=== PATIENT | male | born 1945 | race Caucasian/White ===

== ENCOUNTER 2021-10-29 09:05 | Outpatient (CLI) | payer MEDICARE, SELFPAY ==
[2021-10-29 14:04] LABS: Chloride* 104 mmol/L (96-114)
[2021-10-29 14:05] LABS: Albumin* 4.3 g/dL (3.3-5.0); Sodium* 141 mmol/L (135-149)
[2021-10-29 14:06] LABS: Potassium* 4.1 mmol/L (3.6-5.1)
[2021-10-29 14:08] LABS: Alanine Aminotransferase* 32 U/L (4-50); Alkaline Phosphatase* 62 U/L (40-150); Aspartate Amino Transferase* 33 U/L (12-35); Bilirubin Total* 1.1 mg/dL (0.1-1.5); Blood Urea Nitrogen* 23 mg/dL (7-30); Carbon Dioxide* 33 mmol/L (20-32); Estimated Glomerular Filt Rate 77.52
[2021-10-29 14:09] LABS: Calcium* 9.4 mg/dL (8.4-10.6); Glucose* 103 mg/dL (60-115)
[2021-10-29 14:47] LABS: PSA Screen* < 0.06 ng/mL (0.10-4.00)
[2021-10-29 14:57] LABS: Cholesterol* 144 mg/dL (90-199); HDL Cholesterol* 44 mg/dL (>=40); LDL Cholesterol Calculated 80 mg/dL (<100); Triglycerides* 99 mg/dL (40-149)
== END 2021-10-29 09:06 | disposition home or self-care (01) ==
PROVIDERS: PCP Family Medicine; Visit Provider Family Medicine
DX: Z00.00 Encounter for general adult medical examination without abnormal findings (principal); E78.5 Hyperlipidemia, unspecified; I10 Essential (primary) hypertension; G45.3 Amaurosis fugax; M81.0 Age-related osteoporosis without current pathological fracture; Z12.5 Encounter for screening for malignant neoplasm of prostate
CPT/HCPCS: 80053; 80061; 84153

== ENCOUNTER 2021-11-11 13:26 | Outpatient (CLI) | payer MEDICARE, SELFPAY ==
--- NOTE | 2021-11-11 13:30 | CRLHL7_ITS ---
For Patients: As a result of the Cures Act, medical imaging exams and procedure reports are released immediately into your electronic medical record. You may view this report before your referring provider. If you have questions, please contact your health care provider. DXA BONE MINERAL DENSITY STUDY, 11/11/2021 Current height (inches): 70.0 Weight (lb.): 200.0 Menopause age: N/A Ethnicity: White 1. Have you had a previous hip or vertebral fracture? No. 2. Have you had any fractures during your adult life which did not result from significant trauma (e.g., auto accident)? No. 3. Did either of your parents have a hip fracture? No. 4. Do you smoke? No. 5. Have you ever taken Glucocorticoids? No. 6. Do you have rheumatoid arthritis? No. 7. Do you have secondary osteoporosis? No. 8. Do you drink 3 or more alcoholic drinks per day? No. 9. Are you being treated for osteoporosis? Yes. 10. Have you ever taken any of the following medications: Actonel, Evista, Fosamax, Miacalcin, Reclast, Boniva, Forteo, HRT (i.e., estrogen/hormone therapy), Protelos, Prolia, Vitamin D, Calcium, other ??? please specify. ANSWER: Yes; Fosamax, vitamin D, calcium. 11. Do you have any of the following medical conditions: Anorexia or bulimia, asthma or emphysema, end stage renal disease, hyperparathyroidism, any seizure disorders, cancer, inflammatory bowel diseases, hysterectomy, other ??? please specify. ANSWER: Yes; Seizure disorder, cancer. 12. What was your maximum height (inches)? 70. 13. Do you perform weight bearing exercise regularly? No. 14. Do you regularly consume dairy products? Yes. 15. Do you drink caffeinated beverages? Yes. TECHNIQUE: Bone mineral density study was performed using the [email or web address]. FINDINGS: The results of the study expressed as bone mineral density (BMD) are as follows: Lumbar Spine L2 to L4: BMD: 1.056 g/cm2. T-score: -0.5. Z-score: 0.6. Neck Left: BMD: 0.642 g/cm2. T-score: -2.1. Z-score: -0.7. Right: BMD: 0.610 g/cm2. T-score: -2.4. Z-score: -0.9. Total Left: BMD: 0.812 g/cm2. T-score: -1.5. Z-score: -0.5. Right: BMD: 0.807 g/cm2. T-score: -1.5. Z-score: -0.6. IMPRESSION: Osteopenia. COMPARISON: Compared with scan of 11/21/2019, the bone mineral density has decreased by 1.0 percent at the spine and increased by 3.1 percent at the hip. Compared with scan of 11/09/2017, the bone mineral density has increased by 11.2 percent at the spine and increased by 11.6 percent at the hip. *Comparison exams done prior to 09/2019 were performed on different unit, [employer]. JOSE RAMON BENSON M.D. Diagnostic Radiologist [email or web address] Transcribed: 5:[address]/Dictated by: Jose Ramon Benson MD @ 11/11/2021 3:14:00 PM (Electronically Signed)
== END 2021-11-11 13:27 | disposition home or self-care (01) ==
PROVIDERS: PCP Family Medicine; Visit Provider Family Medicine
DX: M81.0 Age-related osteoporosis without current pathological fracture (principal); M85.89 Other specified disorders of bone density and structure, multiple sites
CPT/HCPCS: 77080

== ENCOUNTER 2022-12-05 08:06 | Outpatient (CLI) | payer MEDICARE, SELFPAY | END 2022-12-05 08:07 | disposition home or self-care (01) | LOC: NFLDREF 14:48 | PROVIDERS: PCP Family Medicine; Referring Provider Family Medicine; Visit Provider Family Medicine | DX: Z00.00 Encounter for general adult medical examination without abnormal findings (principal); I10 Essential (primary) hypertension; E78.5 Hyperlipidemia, unspecified; C61 Malignant neoplasm of prostate | CPT/HCPCS: 80048; 80061; 84153 ==

== ENCOUNTER 2023-12-06 08:06 | Outpatient (CLI) | payer MEDICARE, SELFPAY ==
--- OUTSIDE RECORDS SUMMARY | 2023-12-07 09:36 | XMS_ITS | Referral Summary ---
Author Organization [facility] Address [address] [place] [address] Care Team Providers Care Head Bookkeeper Name Role Phone AsaelJaskaran adamson Rocio Primary Care Provider + [phone] Michael Onofre MD Unavailable [phone] Allergies Active Allergy Reactions Criticality Noted Date Comments Simvastatin Muscle Pain (Myalgia) 12/28/2018 Medications Medication Sig Dispensed Refills Start Date End Date Status clopidogrel (PLAVIX) 75 MG tablet Take 75 mg by mouth every evening Active rosuvastatin (CRESTOR) 10 MG tablet Take 10 mg by mouth daily Active hydrochlorothiazide (HYDRODIURIL) 12.5 MG tablet Take 12.5 mg by mouth daily Active alendronate (FOSAMAX) 70 MG tablet Take 70 mg by mouth every 7 days On Sundays Active loratadine (CLARITIN) 10 MG tablet Take 10 mg by mouth daily Active metoprolol succinate ER (TOPROL-XL) 50 MG 24 hr tablet Take 50 mg by mouth daily Active CALCIUM-VITAMIN D PO Take 1 tablet by mouth 2 times daily Active sodium chloride (OCEAN) 0.65 % nasal spray [place] 1 spray into both nostrils daily as needed for congestion Active pantoprazole (PROTONIX) 20 MG EC tabletIndications:A symptomatic stenosis of right carotid artery Take 1 tablet (20 mg) by mouth every morning (before breakfast) 90 tablet 3 12/29/2018 Active Active Problems Problem Noted Date Diagnosed Date Asymptomatic stenosis of right carotid artery Immunizations Name Administration Dates Next Due Influenza (intradermal) 02/19/2018 Pneumococcal, Unspecified 10/31/2016,10/23/2014 TD,PF 7+ (Tenivac) 09/18/1993 Tdap (Adult) Unspecified Formulation 08/18/2010 Zoster vaccine, live 06/15/2009 Social History Tobacco Use Types Packs/Day Years Used Date Smoking Tobacco: Former Cigarettes Q uit: 12/20/2009 Smokeless Tobacco: Never Alcohol Use Standard Drinks/Week Comments Yes 0 (1 standard drink = 0.6 oz pur e alcohol) 1 beer every 2 months Adolescent Education Answer Date Record ed Getting School Help Needed Not on file 01/22 Sex and Gender Information Value Date Recorded Sex Assigned at Not on file Gender Identity Not on file Sexual Orientation Not on file Last Filed Vital Signs Vital Sign Reading Time Taken Comments Blood Pressure 150/78 04/11/2019 11:03 AM POST FORM REMOVER Pulse 68 04/11/2019 11:03 AM POST FORM REMOVER Temperature 36.8 ??C (98.2 ??F) 01/10/2019 10:55 AM C DT Respiratory Rate 16 01/10/2019 10:55 AM CDT Oxygen Saturation 96% 12/29/2018 8:13 AM CDT Inhaled Oxygen Concentration - - Weight 90.7 kg (200 lb) 01/10/2019 10:55 AM CDT Height 177.8 cm (5' 10) 01/10/2019 10:55 AM CDT Body Mass Index 28.7 01/10/2019 10:55 AM CDT Plan of Treatment Upcoming Encounters Date Type Department Care Team (Late st Contact Info) Description 12/11/2023 8:00 AM CDT Appointment [facility] [address] [place] [phone] Michael Onofre MD [address] [place] [address] 12/12/2023 10:45 AM CDT Office Visit [facility] [place] [address] [place] [phone] Michael Onofre MD [address] [place] [address] Procedures Procedure Name Priority Date/Time Associated Diagnosis Comments GLUCOSE BY METER Routine 12/29/2018 5:50 AM CDT LIPID PROFILE STAT 12/28/2018 11:38 AM CDT from Last 3 Months or Most Recently Relevant to Health Maintenance Results * (ABNORMAL) Glucose by meter (12/29/2018 5:50 AM CDT) Glucose 101(H) 70 - 99 mg/dL 12/29/2018 6:02 AM CDT POINT OF CARE TEST, GLUCOSE 12/29/2018 5:50 AM CDT 12/29/2018 6:02 AM CDT Michael Onofre MD LAB - BEAKER PO CT POINT OF CARE TEST, GLUCOSE * Lipid panel (12/28/2018 11:38 AM CDT) Cholesterol 122 <200 mg/dL 12/28/2018 12:[address] [facility] Triglycerides 68 <150 mg/dL 12/28/2018 12:[address] [facility] HDL Cholesterol 46 >39 mg/dL 9 12:[address] [facility] LDL Cholesterol Calculated 62 <100 mg/dL 12/28/2018 12:[address] [facility] Comment:Desirable: <100 mg/d l Non HDL Cholesterol 76 <130 mg/dL 12/28/2018 12:[address] [facility] Blood specimen (specimen) 12/28/2018 11:38 AM CDT 12/28/2018 11:39 AM CDT Michael Onofre MD LAB - BLOOD ORD ERABLES [facility] [address] [place] [address], [facility] [phone] from Last 3 Months or Most Recently Relevant to Health Maintenance Care Teams Head Bookkeeper Relationship Specialty Start Date End Date Jaskaran Vyas [address] [address] PCP - General Family Practice 11/21/18 Michael Onofre MD [address] [place] [address] Assigned Heart and Vascular Provider 12/24/22
--- OUTSIDE RECORDS SUMMARY | 2023-12-07 09:36 | XMS_ITS | Clinical Summary ---
Author Organization [facility] Address [address] [place] [address] Care Team Providers Care Flour Worker Name Role Phone Jaskaran Vyas Rocio Primary Care Provider + [phone] Michael Onofre MD Unavailable [phone] Allergies Active Allergy Reactions Criticality Noted Date [...] sodium chloride (OCEAN) 0.65 % nasal spray [place] 1 spray into both nostrils daily as [...] Comments Blood Pressure 150/78 04/11/2019 11:03 AM PATIENT ACCOUNTS COORDINATOR Pulse 68 04/11/2019 11:03 AM PATIENT ACCOUNTS COORDINATOR Temperature 36.8 ??C (98.2 ??F) 01/10/2019 10:55 [...] Info) Description 12/11/2023 8:00 AM CDT Appointment [facility] [address] [place] [phone] Michael Onofre MD [address] [place] [address] 12/12/2023 10:45 AM CDT Office Visit [facility] [place] [address] [place] [phone] Michael Onofre MD [address] [place] [address] Health Maintenance Due Date Last Done Comments ADVANCE CARE PLANNING 1944 ANNUAL REVIEW OF HM ORDERS 1944 HEPATITIS C SCREENING 1962 LUNG CANCER SCREENING 1994 RSV VACCINE ( & 60+) (1 - 1-dose 60+ series) 2004 MEDICARE ANNUAL WELLNESS VISIT 2009 LIPID 12/29/2019 12/28/2018 FALL RISK ASSESSMENT 04/11/2020 04/11/2019, 01/11/20 19 GLUCOSE 12/29/2021 12/29/2018, 12/28/2018 PHQ-2 (once per calendar year) 2023 COVID-19 Vaccine (5 - 2022- season) 2023 02/23/2023, 02/23/2022, 09/01/2021, Additional history exists INFLUENZA VACCINE (#1) 2023 , 02/23/2022, 03/01/2021, Additional history exists DTAP/TDAP/TD IMMUNIZATION (3 - Td or Tdap) 11/24/2030 11/24/2020, 08/18/2010, 08/18/2010, Additional history exists Pneumococcal Vaccine: 65+ Years Completed 10/31/2016, 10/31/2016, 10/23/2014, Additional history exists ZOSTER IMMUNIZATION Completed 04/15/2019, 02/12/2019, 06/15/2009 HPV IMMUNIZATION Aged Out No longer e ligible based on patient's age to complete this topic IPV IMMUNIZATION Aged Out No longer e ligible based on patient's age to complete this topic MENINGITIS IMMUNIZATION Aged Out No l onger eligible based on patient's age to complete this topic RSV MONOCLONAL ANTIBODY Aged Out No l onger eligible based on patient's age to complete this topic Procedures Procedure Name Priority Date/Time Associated Diagnosis [...] <200 mg/dL 12/28/2018 12:[address] [facility] Triglycerides 68 <150 mg/dL 12/28/2018 12:[address] [facility] HDL Cholesterol 46 >39 mg/dL 9 12:[address] [facility] LDL Cholesterol Calculated 62 <100 mg/dL 12/28/2018 12:[address] [facility] Comment:Desirable: <100 mg/d l Non HDL Cholesterol 76 <130 mg/dL 12/28/2018 12:[address] [facility] Blood specimen (specimen) 12/28/2018 11:38 AM CDT 12/28/2018 11:39 AM CDT Michael Onofre MD LAB - BLOOD ORD ERABLES [facility] [address] [place] [address], [facility] [phone] from Last 3 Months or Most Recently Relevant to Health Maintenance Care Teams Flour Worker Relationship Specialty Start Date End Date Jaskaran Vyas [address] [address] PCP - General Family Practice 11/21/18 Michael Onofre MD [address] [place] [address] Assigned Heart and Vascular Provider 12/24/22
--- OUTSIDE RECORDS SUMMARY | 2023-12-07 09:36 | XMS_ITS | Continuity of Care Document ---
Author Name [facility] Organization [facility] Care Team Providers Care Rf Test Engineer Name Role Phone [facility] Unavailable Unavailable Problems Combined list of problems from Department of Defense and Veterans Affairs facilities. It does not include entries that were removed or entered in error. Problem Status Onset Date Problem Type Date of Resolution Comments Source Diagnosis: ICD-10-CM H90.3 Sensorineural hearing loss, bilateral Active Diagnosis [facility] Encounters Combined list of: 1) Encounters from Department of Veterans Affairs facilities going back up to thelast 18 months. 2) Encounters from the Department of Defense facilities going back up to 280 months. Location Location Details Encounter Type Encounter Number Reason For Visit Attending Provider ADM Date DC Date Status Disposition Source [facility] HEAR[facility]ID REPAIR/MOD IFYING [id number] Diagnos is: ICD-10- CM H90.3 Sensori neural hearing loss, carlos saavedra
HERVE WALKER 03/09 LOGAN SALGUERO [facility]
== END 2023-12-06 08:07 | disposition home or self-care (01) ==
LOC: NFLDREF 12-07 09:33
PROVIDERS: PCP Family Medicine; Referring Provider Family Medicine; Visit Provider Family Medicine
DX: Z00.00 Encounter for general adult medical examination without abnormal findings (principal); E78.5 Hyperlipidemia, unspecified; I10 Essential (primary) hypertension; C61 Malignant neoplasm of prostate; Z13.1 Encounter for screening for diabetes mellitus
CPT/HCPCS: 80053; 80061; G0103

== ENCOUNTER 2023-12-28 13:17 | Outpatient (CLI) | payer MEDICARE, SELFPAY ==
--- OUTSIDE RECORDS SUMMARY | 2023-12-28 13:20 | XMS_ITS | Encounter Summary ---
Author Organization [place] Address [facility] [place] [address] Care Team Providers Care Breast Worker Name Role Phone Michael Onofre MD Unavailable [phone] Danilo Thurston MD Primary Care Provider [phone] Reason for Referral * Diagnostic Imaging CT Scan (Routine) - Closed Specialty Diagnoses / Procedures Referred By Contac t Referred To Contact Radiology. Diagnoses Right carotid artery occlusion Asymptomatic stenosis of left carotid artery Procedures CTA Head Neck w Contrast Michael Onofre MD [address] [place] [address] Referral ID Status Reason Start Date Expiration Date Visits Re quested Visits Authorized [id number] Closed 12/12/2023 12/11/2024 1 1 Reason for Visit * Reason Comments RECHECK History of right car otid artery occlusion; left carotid artery stenosis; 1 year follow up to 12/15/22 Encounter Details Date Type Department Care Team (Late st Contact Info) Description 12/12/2023 10:45 AM CDT Office Visit [facility] [place] [address] [place] [phone] Michael Onofre MD [address] [place] [address] Right carotid artery occlusion (Primary Dx); Asymptomatic stenosis of left carotid artery; Hyperlipidemia LDL goal <70 Social History Tobacco Use Types Packs/Day Years Used Date Smoking Tobacco: Former Cigarettes Q uit: 12/20/2009 Smokeless Tobacco: Never Tobacco Cessation:Counseling Given: Not Answered Alcohol Use Standard Drinks/Week Comments Yes 0 (1 standard drink = 0.6 oz pur e alcohol) 1 beer every 2 months PHQ-2 Answer Date Recorded PHQ-2 Score 0 12/12/2023 Adolescent Education Answer Date Record ed Getting School Help Needed Not on file 01/22 Sex and Gender Information Value Date Recorded Sex Assigned at Not on file Gender Identity Not on file Sexual Orientation Not on file documented as of this encounter Last Filed Vital Signs Vital Sign Reading Time Taken Comments Blood Pressure 130/79 12/12/2023 10:40 AM CDT Pulse 80 12/12/2023 10:40 AM CDT Temperature - - Respiratory Rate - - Oxygen Saturation - - Inhaled Oxygen Concentration - - Weight - - Height - - Body Mass Index - - documented in this encounter Patient Instructions * Patient Instructions* Michael Onofre MD - 12/12/2023 10:45 AM CDT This documented in this encounter Progress Notes * Michael Onofre MD - 12/12/2023 10:45 AM CDT Images from the original note were not included. [facility] Zander Torrez returns for a 1 year carotid follow-up. --12/28/2018: Right CEA with external jugular vein patent -- 10/27/2020 duplex: Widely patent right CEA -- 12/13/2022 duplex: Asymptomatic occlusion right hiedvs-uymfpojz-rqbvefjm carotid arteries. Mild disease of left carotid bifurcation. PSV= 166 cm/s PMH: Medications: Toprol-XL, HCTZ Crestor, Plavix Medical: Hypertension Hyperlipidemia on statin-no recent LDL in Care Everywhere GERD Osteoporosis No history of renal insufficiency. Last documented serum creatinine= 1.03 [address] [facility] and Care Everywhere --12/11/2023 carotid duplex: Minimal calcified plaque at the bifurcation. Carotid bulb PSV = 209 cm/s. ICA PSV= 188 cm/s. Significant stenosis left ECA changed. Continued complete occlusion of the right carotid system. ROS: Remains independent. No neurological issues. Lives in [facility]. Exam: Alert and appropriate. Normal affect. Ambulatory. Blood pressure 130/79 left arm. Pulse 80 regular. HEENT= unremarkable. Well-healed right carotid incision. Questionable left bruit Chest= clear Cardiovascular= regular rate Extremities= unremarkable. No swelling. Normal sensation. +3 PT pulses bilaterally. IMPRESSION: #1. Some worsening of the left carotid stenosis. This is more concerning with the total right carotid occlusion. Due to this we will perform a CTA at [facility] [place] which is closer to his home to help evaluate this further and decide whether any surgical intervention is indicated. We have kept him on Plavix due to the right carotid asymptomatic occlusion and left carotid bifurcation disease and will continue on this for now. #2. No evidence of PAD with excellent distal pulses. #3. Good risk factor control. On chronic Crestor. #4. Well-controlled blood pressure. Dr. Thurston asked if the HCTZ can be discontinued. From a vascular standpoint this is fine. Also his blood pressure is well-controlled and HCTZ may not be having any effect. 25 minutes with patient today including chart review. Will follow-up with patient once CTA has beencompleted. Michael Onofre MD This note was created using [employer] voice recognition software which may result in vending technician errors. CC: Dr. Danilo Thurston * Rukhsana Petty - 12/12/2023 10:45 AM CDT [facility] Patient is here for a follow up. Pt is currently taking Statin and Plavix. BP 130/79 (BP Location: Left arm, Patient Position: Chair, Cuff Size: Adult Regular) Pulse 80 The provider has been notified that the patient has no concerns. Questions patient would like addressed today are: N/A. Refills are needed: N/A Has homecare services and agency name: Mary Petty MA documented in this encounter Miscellaneous Notes * Addendum Note - Mega Cartagena RN - 12/12/2023 10:45 AM CDTAddended by: MEGA CARTAGENA on: 12/12/2023 02:13 PM Modules accepted: Orders documented in this encounter Plan of Treatment Upcoming Encounters Date Type Department Care Team (Late st Contact Info) Description 12/28/2023 3:45 PM CDT Virtual Visit [facility] [place] [address] [place] [phone] Michael Onofre MD [address] [place] [phone] documented as of this encounter Results * CTA Head Neck w Contrast (12/21/2023 8:39 AM CDT) Anatomical Region Laterality Modality Head, SUBRAD CT NEURO, SUBRA D CT NEURO, UMP CT NEURO, RAD CT Computed Tomography Impressions 12/21/2023 5:30 PM CDT IMPRESSION: 1. Long segment occlusion of the right common carotid and internal carotid arteries, as described. 2. Approximately 50% stenosis of the origin of the left internal carotid artery due to atherosclerosis. 3. Moderate focal stenosis of the origin of the right vertebral artery. Moderate focal stenosis of the V4 segment of the left vertebral artery. 4. Multiple thyroid nodules, as described. Recommend follow-up thyroid ultrasound. ANNIE ANDERSON MD SYSTEM ID: [id number] Narrative 12/21/2023 5:[address] ANGIOGRAM OF THE HEAD AND NECK WITH CONTRAST December 21, 2023 8:39 AM HISTORY: History of right carotid occlusion, left carotid artery stenosis. Right carotid artery occlusion. Asymptomatic stenosis of left carotid artery. TECHNIQUE: CT angiography with an injection of 67mL Isovue-370 IV with scans through the head and neck. Images were transferred to a separate 3-D workstation where multiplanar reformations and 3-D images were created. Estimates of carotid stenoses are made relative to the distal internal carotid artery diameters except as noted. Radiation dose for this scan was reduced using automated exposure control, adjustment of the mA and/or kV according to patient size, or iterative reconstruction technique. ?? COMPARISON: CTA head and neck dated 12/20/2018. Carotid ultrasound 12/11/2023. CT ANGIOGRAM HEAD FINDINGS: Mild nonatherosclerotic disease involving the left carotid siphon. There is progressively reduced opacification of the right internal carotid artery from the carotid terminus region down toward the horizontal petrous segment, which is nonspecific, but which may indicate retrograde flow. Ojkl-oz-fjrrgzdf stenoses involving the right carotid siphon region. The proximal branches of the bilateral anterior cerebral arteries appear patent. An anterior communicating artery is present. Dominant right and smaller left vertebral arteries appear patent. There is up to moderate focal stenosis of the left vertebral artery and mild focal stenosis of the right vertebral artery due to atherosclerotic plaques. The basilar artery is patent. The major proximal branches of the bilateral posterior cerebral arteries appear patent. CT ANGIOGRAM NECK FINDINGS: Normal origin of the great vessels from the aortic arch. Right carotid artery: There is complete long segment occlusion of the internal carotid artery extending from approximately 6 mm above its origin to the level of the carotid bifurcation. Minimal contrast opacification of the origin of the right internal carotid artery and the distal cervical internal carotid artery, likely due to collateral flow from the external carotid artery and also possibly some retrograde flow. Otherwise, the right internal carotid artery appears to be completely occluded in the neck. Left carotid artery: There appears to be approximately 50% stenosis of the origin of the left internal carotid artery by NASCET criteria. Otherwise, the common carotid and cervical internal carotid arteries appear patent. Vertebral arteries: There appears to be at least moderate focal atherosclerotic stenosis of the origin of the right vertebral artery, which is dominant. No significant stenosis of the nondominant left vertebral artery. No findings of dissection. Other findings: Multiple nodules in the thyroid gland, including a nodule or confluence of nodules in the left thyroid lobe measures over 20 mm. Partially calcified nodule in the posterior right thyroid lobe measuring 12-13 mm. There is some linear soft tissue density along the right anterior cervical space and lateral right subinsular region that may indicate scarring. Multilevel degenerative changes are noted in the cervical spine. There is reversal of the normal cervical lordosis with grade 1 spondylolisthesis at C4-C5. Procedure Note Annie Anderson MD - 12/21/2023 CT ANGIOGRAM OF THE HEAD AND NECK WITH CONTRAST December 21, 2023 8:39 AM HISTORY: History of right carotid occlusion, left carotid artery stenosis. Right carotid artery occlusion. Asymptomatic stenosis of left carotid artery. TECHNIQUE: CT angiography with an injection of 67mL Isovue-370 IV with scans through the head and neck. Images were transferred to a separate 3-D workstation where multiplanar reformations and 3-D images were created. Estimates of carotid stenoses are made relative to the distal internal carotid artery diameters except as noted. Radiation dose for this scan was reduced using automated exposure control, adjustment of the mA and/or kV according to patient size, or iterative reconstruction technique. COMPARISON: CTA head and neck dated 12/20/2018. Carotid ultrasound 12/11/2023. CT ANGIOGRAM HEAD FINDINGS: Mild nonatherosclerotic disease involving the left carotid siphon. There is progressively reduced opacification of the right internal carotid artery from the carotid terminus region down toward the horizontal petrous segment, which is nonspecific, but which may indicate retrograde flow. Dvig-oy-iycwyukx stenoses involving the right carotid siphon region. The proximal branches of the bilateral anterior cerebral arteries appear patent. An anterior communicating artery is present. Dominant right and smaller left vertebral arteries appear patent. There is up to moderate focal stenosis of the left vertebral artery and mild focal stenosis of the right vertebral artery due to atherosclerotic plaques. The basilar artery is patent. The major proximal branches of the bilateral posterior cerebral arteries appear patent. CT ANGIOGRAM NECK FINDINGS: Normal origin of the great vessels from the aortic arch. Right carotid artery: There is complete long segment occlusion of the internal carotid artery extending from approximately 6 mm above its origin to the level of the carotid bifurcation. Minimal contrast opacification of the origin of the right internal carotid artery and the distal cervical internal carotid artery, likely due to collateral flow from the external carotid artery and also possibly some retrograde flow. Otherwise, the right internal carotid artery appears to be completely occluded in the neck. Left carotid artery: There appears to be approximately 50% stenosis of the origin of the left internal carotid artery by NASCET criteria. Otherwise, the common carotid and cervical internal carotid arteries appear patent. Vertebral arteries: There appears to be at least moderate focal atherosclerotic stenosis of the origin of the right vertebral artery, which is dominant. No significant stenosis of the nondominant left vertebral artery. No findings of dissection. Other findings: Multiple nodules in the thyroid gland, including a nodule or confluence of nodules in the left thyroid lobe measures over 20 mm. Partially calcified nodule in the posterior right thyroid lobe measuring 12-13 mm. There is some linear soft tissue density along the right anterior cervical space and lateral right subinsular region that may indicate scarring. Multilevel degenerative changes are noted in the cervical spine. There is reversal of the normal cervical lordosis with grade 1 spondylolisthesis at C4-C5. IMPRESSION: 1. Long segment occlusion of the right common carotid and internal carotid arteries, as described. 2. Approximately 50% stenosis of the origin of the left internal carotid artery due to atherosclerosis. 3. Moderate focal stenosis of the origin of the right vertebral artery. Moderate focal stenosis of the V4 segment of the left vertebral artery. 4. Multiple thyroid nodules, as described. Recommend follow-up thyroid ultrasound. ANNIE ANDERSON MD SYSTEM ID: [id number] Michael Onofre MD IMG CT ORDERABL ES documented in this encounter Visit Diagnoses Diagnosis Right carotid artery occlusion- Primary Occlusion and stenosis of carotid artery without mention of cerebral infarction Asymptomatic stenosis of left carotid artery Hyperlipidemia LDL goal <70 Other and unspecified hyperlipidemia Right carotid artery occlusion Occlusion and stenosis of carotid artery without mention of cerebral infarction Asymptomatic stenosis of left carotid artery documented in this encounter Care Teams Breast Worker Relationship Specialty Start Date End Date Danilo Thurston MD [facility] [address] [address] PCP - General Family Medicine 10/22/21 Michael Onofre MD [address] [place] [address] Assigned Heart and Vascular Provider 12/24/22 documented as of this encounter
--- OUTSIDE RECORDS SUMMARY | 2023-12-28 13:20 | XMS_ITS | Encounter Summary ---
Author Organization [place] Address [address] [place] [address]. [place] [address] Care Team Providers Care Manager Roofing Name Role Phone Michael Onofre MD Unavailable [phone] Danilo Thurston MD Primary Care Provider [phone] Encounter Details Date Type Department Care Team (Latest Contact Info) Description 12/21/2023 Travel Social History Tobacco Use Types Packs/Day Years [...] on file documented as of this encounter Plan of Treatment Upcoming Encounters Date Type Department Care Team (Late st Contact Info) Description 12/28/2023 3:45 PM CDT Virtual Visit [facility] [place] [address] [place] [phone] Michael Onofre MD [address] [place] [phone] documented as of this encounter Visit Diagnoses Not on filedocumented in this encounter Care Teams Manager Roofing Relationship Specialty Start Date End Date Danilo Thurston MD [facility] [address] [place] [address] PCP - General Family Medicine 10/22/21 Michael Onofre MD [address] [place] [address] Assigned Heart and Vascular Provider 12/24/22 documented as of this encounter
--- OUTSIDE RECORDS SUMMARY | 2023-12-28 13:20 | XMS_ITS | Encounter Summary ---
Author Organization [place] Address [address] [place] [address]. [place] [address] Care Team Providers Care Braille Coder Name Role Phone Michael Onofre MD Unavailable [phone] Danilo Thurston MD Primary Care Provider [phone] Encounter Details Date Type Department Care Team (Latest Contact Info) Description 12/11/2023 Travel Social History Tobacco Use Types Packs/Day [...] Description 12/28/2023 3:45 PM CDT Virtual Visit [facility] [place] [address] [place] [phone] Michael Onofre MD [address] [place] [phone] documented as of this encounter Visit Diagnoses Not on filedocumented in this encounter Care Teams Braille Coder Relationship Specialty Start Date End Date Danilo Thurston MD [facility] [address] [place] [address] PCP - General Family Medicine 10/22/21 Michael Onofre MD [address] [place] [address] Assigned Heart and Vascular Provider 12/24/22 documented as of this encounter
--- OUTSIDE RECORDS SUMMARY | 2023-12-28 13:20 | XMS_ITS | Encounter Summary ---
Author Organization [place] Address [address] [place] [address] Care Team Providers Care Copyright Expert Name Role Phone Michael Onofre MD Unavailable [phone] Danilo Thurston MD Primary Care Provider [phone] Reason for Referral * Diagnostic Imaging CT Scan (Routine) - Closed Specialty Diagnoses / Procedures Referred By Contac t Referred To Contact Radiology. Diagnoses Right carotid artery occlusion Asymptomatic stenosis of left carotid artery Procedures CTA Head Neck w Contrast Michael Onofre MD [address] [place] [address] Referral ID Status Reason Start Date Expiration Date Visits Re quested Visits Authorized [id number] Closed 12/12/2023 12/11/2024 1 1 Reason for Visit * Diagnostic Imaging CT Scan (Routine) - Closed Specialty Diagnoses / Procedures Referred By Contac t Referred To Contact Radiology. Diagnoses Right carotid artery occlusion Asymptomatic stenosis of left carotid artery Procedures CTA Head Neck w Contrast Michael Onofre MD [address] [place] [address] Referral ID Status Reason Start Date Expiration Date Visits Re quested Visits Authorized [id number] Closed 12/12/2023 12/11/2024 1 1 Encounter Details Date Type Department Care Team (Latest Contact Info) Description 12/21/2023 8:02 AM CDT - 12/21/2023 11:59 PM CDT Hospital Encounter [facility] [address] [place] [phone] Michael Onofre MD [address] [place] [address] Right carotid artery occlusion; Asymptomatic stenosis of left carotid artery Discharge Disposition: Home or Self Care Social History Tobacco Use Types Packs/Day Years [...] on file documented as of this encounter Medications at Time of Discharge Medication Sig Dispensed Refills Start Date End Date Calcium-Cholecalciferol -Zinc 650-20-5.5 MG-MCG-MG CHEW CALCIUM-VITAMIN D PO Take 1 tablet by mouth 2 times daily clopidogrel (PLAVIX) 75 MG tablet Take 75 mg by mouth every evening hydrochlorothiazide (HYDRODIURIL) 12.5 MG tablet Take 12.5 mg by mouth daily metoprolol succinate ER (TOPROL-XL) 50 MG 24 hr tablet Take 50 mg by mouth daily rosuvastatin (CRESTOR) 10 MG tablet Take 10 mg by mouth daily loratadine (CLARITIN) 10 MG tablet Take 10 mg by mouth daily 12/28/2023 sodium chloride (OCEAN) 0.65 % nasal spray [place] 1 spray into both nostrils daily as needed for congestion 12/28/2023 documented as of this encounter Plan of Treatment Upcoming Encounters Date Type Department Care Team (Late st Contact Info) Description 12/28/2023 3:45 PM CDT Virtual Visit [facility] [place] [address] [place] [phone] Michael Onofre MD [address] [place] [address] (work) documented as of this encounter Procedures Procedure Name Priority Date/Time Associated Diagnosis Comments CTA HEAD NECK W CONTRAST Routine 12/21/2023 8:39 AM CDT Right carotid artery occlusion Asymptomatic stenosis of left carotid artery ISTAT CREATININE POCT Routine 12/21/2023 8:24 AM CDT documented in this encounter Results * CTA Head Neck [...] thyroid ultrasound. ANNIE ANDERSON MD SYSTEM ID: [id number] Narrative 12/21/2023 5:[address] ANGIOGRAM [...] nonspecific, but which may indicate retrograde flow. Muud-sb-amykekxl stenoses involving the right carotid siphon region. [...] nonspecific, but which may indicate retrograde flow. Llww-zm-qojsnfhn stenoses involving the right carotid siphon region. [...] thyroid ultrasound. ANNIE ANDERSON MD SYSTEM ID: [id number] Michael Onofre MD IMG CT ORDERABL ES * Creatinine POCT (12/21/2023 8:24 AM CDT) Creatinine POCT 1.1 0.7 - 1.3 mg/dL 12/21/2023 8:26 AM CDT [facility] GFR, ESTIMATED POCT >60 >60 mL/min/1.7 3m2 12/21/2023 8:26 AM CDT [facility] Blood BLOOD SPECIMEN / Unknown 12/21/2023 8:24 AM CDT 12/21/2023 8:26 AM CDT Michael Onofre MD [facility] CT [facility] POC [facility] [address] [facility] (1st floor, no room number) [place] [address], [facility] documented in this encounter Visit Diagnoses Diagnosis Right carotid artery occlusion Occlusion and stenosis of carotid artery without mention of cerebral infarction Asymptomatic stenosis of left carotid artery documented in this encounter Administered Medications Inactive Administered Medications - up to 3 most recent administrations Medication Order MAR Action Action Date Dose Rate Site CT Scan Flush Intravenous, 100 mL, ONCE, On [place]ory 12/21/23 at 0830, For 1 dose, This entry is for use by Radiology to intermittently used as a flush in patients receiving a CT scan. $Given 12/21/2023 8:26 AM CDT 80 mLs iopamidol (ISOVUE-370) solution 500 mL 500 mL, Intravenous, ONCE, On [place] 12/21/23 at 0830, For 1 dose $Given 12/21/2023 8:26 AM CDT 67 mLs documented in this encounter Care Teams Copyright Expert Relationship Specialty Start Date End Date Danilo Thurston MD [facility] [address] [facility] [place] [address] PCP - General Family Medicine 10/22/21 Michael Onofre MD [address] [place] [address] Assigned Heart and Vascular Provider 12/24/22 documented as of this encounter
--- OUTSIDE RECORDS SUMMARY | 2023-12-28 13:20 | XMS_ITS | Continuity of Care Document ---
Author Name [facility] Organization [facility] Care Team Providers Care Business Risk Analyst Name Role Phone [facility] Unavailable Unavailable Problems Combined list of problems from Department of Defense and Veterans Affairs facilities. It does not include entries that were removed or entered in error. Problem Status Onset Date Problem Type Date of Resolution Comments Source Diagnosis: ICD-10-CM H90.3 Sensorineural hearing loss, bilateral Active Diagnosis [facility] Encounters Combined list of: 1) Encounters from Department of Veterans Affairs facilities going back up to thelast 18 months. 2) Encounters from the Department of Defense facilities going back up to 280 months. Location Location Details Encounter Type Encounter Number Reason For Visit Attending Provider ADM Date DC Date Status Disposition Source [facility] HEARING AID REPAIR/MOD IFYING [id number] Diagnos is: ICD-10- CM H90.3 Sensori neural hearing loss, carlos saavedra
HERVE WALKER 03/09 LOGAN SALGUERO [facility]
--- OUTSIDE RECORDS SUMMARY | 2023-12-28 13:20 | XMS_ITS | Referral Summary ---
Author Organization [place] Address [address] [place] [address] Care Team Providers Care Emergency Manager Name Role Phone Michael Onofre MD Unavailable [phone] Danilo Thurston MD Primary Care Provider Encounters Date Type Department Care Team Description 12/21/2023 Travel 12/21/2023 8:02 AM CDT - 12/21/2023 11:59 PM CDT Hospital Encounter [facility] [address] [place] [phone] Michael Onofre MD Right carotid artery occlusion; Asymptomatic stenosis of left carotid artery Discharge Disposition: Home or Self Care 12/12/[address] [facility] [place] [address] [place] [phone] Michael Onofre MD Clinic Care Coordination - Follow-up 12/12/2023 10:45 AM CDT Office Visit [facility] [place] [address] [place] [phone] Michael Onofre MD Right carotid artery occlusion (Primary Dx); Asymptomatic stenosis of left carotid artery; Hyperlipidemia LDL goal <70 12/11/2023 Travel 12/11/2023 7:39 AM CDT - 12/11/2023 11:59 PM CDT Hospital Encounter [facility] [address] [place] [phone] Michael Onofre MD History of right-sided carotid endarterectomy; Carotid occlusion, right; Asymptomatic stenosis of left carotid artery Discharge Disposition: Home or Self Care from Last 3 Months Allergies Active Allergy Reactions Criticality Noted Date Comments Simvastatin Muscle Pain (Myalgia) 12/28/2018 Medications Medication Sig Dispensed Refills Start Date End Date Status clopidogrel (PLAVIX) 75 MG tablet Take 75 mg by mouth every evening Active rosuvastatin (CRESTOR) 10 MG tablet Take 10 mg by mouth daily Active hydrochlorothiaz austin (HYDRODIURIL) 12.5 MG tablet Take 12.5 mg by mouth daily Active metoprolol succinate ER (TOPROL-XL) 50 MG 24 hr tablet Take 50 mg by mouth daily Active CALCIUM-VITAMIN D PO Take 1 tablet by mouth 2 times daily Active Calcium-Cholecal ciferol-Zinc 650-20-5.5 MG-MCG-MG CHEW Active alendronate (FOSAMAX) 70 MG tablet Take 70 mg by mouth every 7 days On Sundays 4 Discontinued loratadine (CLARITIN) 10 MG tablet Take 10 mg by mouth daily 4 Discontinued sodium chloride (OCEAN) 0.65 % nasal spray [place] 1 spray into both nostrils daily as needed for congestion 4 Discontinued pantoprazole (PROTONIX) 20 MG EC tabletIndication s:Asymptomatic stenosis of right carotid artery Take 1 tablet (20 mg) by mouth every morning (before breakfast) 90 tablet 3 12/29/2018 4 Discontinued Active Problems Problem Noted Date Diagnosed Date [...] Pulse 80 12/12/2023 10:40 AM CDT Temperature 36.8 ??C (98.2 ??F) 01/10/2019 10:55 [...] Description 12/28/2023 3:45 PM CDT Virtual Visit [facility] [place] [address] [place] [phone] Michael Onofre MD [address] [place] [address] Procedures Procedure Name Priority Date/Time Associated Diagnosis Comments CTA HEAD NECK W CONTRAST Routine 12/21/2023 8:39 AM CDT Right carotid artery occlusion Asymptomatic stenosis of left carotid artery ISTAT CREATININE POCT Routine 12/21/2023 8:24 AM CDT US CAROTID BILATERAL Routine 12/11/2023 8:28 AM CDT History of right-sided carotid endarterectomy Carotid occlusion, right Asymptomatic stenosis of left carotid artery GLUCOSE BY METER Routine 12/29/2018 5:50 AM CDT LIPID PROFILE STAT 12/28/2018 11:38 AM CDT from Last 3 Months or Most Recently Relevant to Health Maintenance Results * CTA Head Neck w Contrast [...] thyroid ultrasound. ANNIE ANDERSON MD SYSTEM ID: [id number] Narrative 12/21/2023 5:[address] ANGIOGRAM [...] nonspecific, but which may indicate retrograde flow. Gcpg-sp-hquwacwu stenoses involving the right carotid siphon region. [...] nonspecific, but which may indicate retrograde flow. Abxe-le-erajljxb stenoses involving the right carotid siphon region. [...] thyroid ultrasound. ANNIE ANDERSON MD SYSTEM ID: [id number] Michael Onofre MD IMG CT ORDERABL ES * Creatinine POCT (12/21/2023 8:24 AM CDT) Creatinine POCT 1.1 0.7 - 1.3 mg/dL 12/21/2023 8:26 AM CDT [facility] LAB[facility]AT[facility] POC GFR, ESTIMATED POCT >60 >60 mL/min/1.7 3m2 12/21/2023 8:26 AM CDT [facility] POC Blood BLOOD SPECIMEN / Unknown 12/21/2023 8:24 AM CDT 12/21/2023 8:26 AM CDT Michael Onofre MD LAB - [facility] RH LABORATORY POC [facility] [address] [facility] (1st floor, no room number) [place] [address], [facility] * US Carotid Bilateral (12/11/2023 8:28 AM CDT) Anatomical Region Laterality Modality Vascular, Head Ultrasound Impressions 12/11/2023 9:11 AM CDT IMPRESSION: ?? 1. Occlusion of the right common and internal carotid arteries. This is unchanged relative to the 2022 exam. 2. 50-69% diameter stenosis of the left ICA relative to the distal ICA diameter, similar to prior exam. 3. Left ECA stenosis, similar to prior exam. DHAVAL ROWE MD Narrative 12/11/2023 9:11 AM CDT BILATERAL CAROTID ULTRASOUND ?? 12/11/2023 8:28 AM HISTORY: ??right carotid artery occlusion; left carotid artery stenosis; History of right-sided carotid endarterectomy; Carotid occlusion, right; Asymptomatic stenosis of left carotid artery COMPARISON: Carotid ultrasound 12/13/2022 RIGHT CAROTID FINDINGS: ??The right common and internal carotid arteries are nearly completely occluded Right ICA PSV: Occluded Right ICA/CCA PSV Ratio: ??N/A ?? Right Vertebral: Antegrade flow. Right ECA: Antegrade flow. LEFT CAROTID FINDINGS: ??There is calcified and noncalcified atherosclerotic plaque in the carotid bifurcation. Left ICA PSV: ??97 ??cm/sec. Left ICA EDV: ??188 cm/sec. Left ICA/CCA PSV Ratio: ??1.9 ?? These indicate ??50 - 69% ??diameter stenosis of the left ICA. ?? Left Vertebral: Antegrade flow. Left ECA: Antegrade flow. Elevated velocities measuring 231 cm/s, indicating stenosis. Causes of Decreased Accuracy: ?? None. Procedure Note Dhaval Rowe MD - 12/11/2023 BILATERAL CAROTID ULTRASOUND 12/11/2023 8:28 AM HISTORY: right carotid artery occlusion; left carotid artery stenosis; History of right-sided carotid endarterectomy; Carotid occlusion, right; Asymptomatic stenosis of left carotid artery COMPARISON: Carotid ultrasound 12/13/2022 RIGHT CAROTID FINDINGS: The right common and internal carotid arteries are nearly completely occluded Right ICA PSV: Occluded Right ICA/CCA PSV Ratio: N/A Right Vertebral: Antegrade flow. Right ECA: Antegrade flow. LEFT CAROTID FINDINGS: There is calcified and noncalcified atherosclerotic plaque in the carotid bifurcation. Left ICA PSV: 97 cm/sec. Left ICA EDV: 188 cm/sec. Left ICA/CCA PSV Ratio: 1.9 These indicate 50 - 69% diameter stenosis of the left ICA. Left Vertebral: Antegrade flow. Left ECA: Antegrade flow. Elevated velocities measuring 231 cm/s, indicating stenosis. Causes of Decreased Accuracy: None. IMPRESSION: 1. Occlusion of the right common and internal carotid arteries. This is unchanged relative to the 2022 exam. 2. 50-69% diameter stenosis of the left ICA relative to the distal ICA diameter, similar to prior exam. 3. Left ECA stenosis, similar to prior exam. DHAVAL ROWE MD Michael Onofre MD IM US ORDERABL ES * (ABNORMAL) Glucose by meter (12/29/2018 5:50 AM CDT) Glucose 101(H) 70 - 99 mg/dL 12/29/2018 6:02 AM CDT POINT OF CARE TEST, GLUCOSE 12/29/2018 5:50 AM CDT 12/29/2018 6:02 AM CDT Michael Onofre MD LAB - [facility] POINT OF CARE TEST, GLUCOSE * Lipid panel (12/28/2018 11:38 AM CDT) Cholesterol 122 <200 mg/dL 12/28/2018 12:04 PM CDT [facility] Triglycerides 68 <150 mg/dL 12/28/2018 12:04 PM CDT [facility] HDL Cholesterol 46 >39 mg/dL 9 12:06 PM CDT [facility] LDL Cholesterol Calculated 62 <100 mg/dL 12/28/2018 12:06 PM CDT [facility] Comment:Desirable: <100 mg/d l Non HDL Cholesterol 76 <130 mg/dL 12/28/2018 12:06 PM CDT [facility] Blood specimen (specimen) 12/28/2018 11:38 AM CDT 12/28/2018 11:39 AM CDT Michael Onofre MD LAB - BLOOD ORD ERABLES [facility] [address] [address] [phone] from Last 3 Months or Most Recently Relevant to Health Maintenance Care Teams Emergency Manager Relationship Specialty Start Date End Date Danilo Thurston MD [facility] [address] [address] PCP - General Family Medicine 10/22/21 Michael Onofre MD [address] [place] [address] Assigned Heart and Vascular Provider 12/24/22
--- OUTSIDE RECORDS SUMMARY | 2023-12-28 13:20 | XMS_ITS | Encounter Summary ---
Author Organization [place] Address [facility] [place] [address] Care Team Providers Care Noxious Weeds And Pest Inspector Name Role Phone Michael Onofre MD Unavailable [phone] Danilo Thurston MD Primary Care Provider [phone] Reason for Visit * Reason Onset Date Comments Clinic Care Coordination - Follow-up 12/12/2023 Encounter Details Date Type Department Care Team (Late st Contact Info) Description 12/12/2023 Telephone [facility] [place] [address] [place] [phone] Michael Onofre MD [address] [place], [place] [phone] Clinic Care Coordination - Follow-up Social History Tobacco Use Types Packs/Day Years [...] on file documented as of this encounter Miscellaneous Notes * Telephone Encounter - Bryanna Jovel - 12/13/2023 9:26 AM CDT Patient scheduled for imaging at [facility] 12/21/23 and telephone follow up with Dr. Onofre 12/28/23 * Telephone Encounter - Angie Singer RN - 12/12/2023 2:14 PM CDT Per 12/12/[address] Onofre, pt needs the following: CTA head/neck (pt would like this at [facility]) In clinic, Video, or Phone appt with Dr. Onofre to discuss results Please schedule this at next available Routing to scheduling to contact patient to coordinate above. Appt note in order comments. ISABEL Gonsalves, RN, CV-BC [facility] [place] documented in this encounter Plan of Treatment Upcoming Encounters Date Type Department Care Team (Late st Contact Info) Description 12/28/2023 3:45 PM CDT Virtual Visit [facility] [place] [address] [place] [phone] Michael Onofre MD [address] [place] [address] documented as of this encounter Visit Diagnoses Not on filedocumented in this encounter Care Teams Noxious Weeds And Pest Inspector Relationship Specialty Start Date End Date Danilo Thurston MD [facility] [address] [place] [address] PCP - General Family Medicine 10/22/21 Michael Onofre MD [address] [place] [address] Assigned Heart and Vascular Provider 12/24/22 documented as of this encounter
--- OUTSIDE RECORDS SUMMARY | 2023-12-28 13:20 | XMS_ITS | Clinical Summary ---
Author Organization [place] Address [address] [place] [address] Care Team Providers Care Test Engineering Manager Name Role Phone Michael Onofre MD Unavailable [phone] Danilo Thurston MD Primary Care Provider [phone] Allergies Active Allergy Reactions Criticality Noted Date [...] sodium chloride (OCEAN) 0.65 % nasal spray [place] 1 spray into both nostrils daily as needed for congestion 4 Discontinued pantoprazole (PROTONIX) 20 MG EC tabletIndication s:Asymptomatic stenosis of right carotid artery Take 1 tablet (20 mg) by mouth every morning (before breakfast) 90 tablet 3 12/29/2018 4 Discontinued Active Problems Problem Noted Date Diagnosed Date Asymptomatic stenosis of right carotid artery Encounters Date Type Department Care Team Description 12/21/2023 8:02 AM CDT - 12/21/2023 11:59 PM CDT Hospital Encounter [facility] [address] [facility] [address] [place] [address] Michael Onofre MD Right carotid artery occlusion; Asymptomatic stenosis of left carotid artery Discharge Disposition: Home or Self Care 12/21/2023 Travel 12/12/2023 10:45 AM CDT Office Visit [facility] [place] [address] [place] [phone] Michael Onofre MD Right carotid artery occlusion (Primary Dx); Asymptomatic stenosis of left carotid artery; Hyperlipidemia LDL goal <70 12/12/2023 Telephone [facility] [place] [address] [place] [phone] Michael Onofre MD Clinic Care Coordination - Follow-up 12/11/2023 7:39 AM CDT - 12/11/2023 11:59 PM CDT Hospital Encounter [facility] [address] [place] [address] [place] [phone] Michael Onofre MD History of right-sided carotid endarterectomy; Carotid occlusion, right; Asymptomatic stenosis of left carotid artery Discharge Disposition: Home or Self Care 12/11/2023 Travel from Last 3 Months Immunizations Name Administration Dates Next Due Influenza [...] Description 12/28/2023 3:45 PM CDT Virtual Visit [facility] [place] [address] [place] [phone] Michael Onofre MD [address] [place] [address] Health Maintenance Due Date Last Done Comments ADVANCE CARE PLANNING 1945 ANNUAL REVIEW OF HM ORDERS 1944 HEPATITIS C SCREENING 1962 LUNG CANCER SCREENING 1994 RSV VACCINE (1 - 1-dose 60+ series) 2004 MEDICARE ANNUAL WELLNESS VISIT 2009 LIPID 12/29/2019 12/28/2018 FALL RISK ASSESSMENT 04/11/2020 04/11/2019, 01/11/20 19 GLUCOSE 12/29/2021 12/29/2018, 12/28/2018 COVID-19 Vaccine ( season) 2023 02/23/2023, 02/23/2022, 09/01/2021, Additional history exists INFLUENZA VACCINE (#1) 2023 3, 02/23/2022, 03/01/2021, Additional history exists DTAP/TDAP/TD IMMUNIZATION (3 - Td or Tdap) 11/24/2030 11/24/2020, 08/18/2010, 08/18/2010, Additional history exists Pneumococcal Vaccine: 65+ Years Completed 10/31/2016, 10/31/2016, 10/23/2014, Additional history exists ZOSTER IMMUNIZATION Completed 04/15/2019, 02/12/2019, 06/15/2009 PHQ-2 (once per calendar year) Completed 12/12/2023 HPV IMMUNIZATION Aged Out No longer e [...] thyroid ultrasound. ANNIE ANDERSON MD SYSTEM ID: [id number] Narrative 12/21/2023 5:[address] ANGIOGRAM [...] nonspecific, but which may indicate retrograde flow. Vrha-hg-cruiwluf stenoses involving the right carotid siphon region. [...] nonspecific, but which may indicate retrograde flow. Iqhq-vi-uhykgyil stenoses involving the right carotid siphon region. [...] thyroid ultrasound. ANNIE ANDERSON MD SYSTEM ID: [id number] Michael Onofre MD [facility] ORDERABL ES * Creatinine POCT (12/21/2023 8:24 AM CDT) Creatinine POCT 1.1 0.7 - 1.3 mg/dL 12/21/2023 8:26 AM CDT [facility] LABORATORY POC GFR, ESTIMATED POCT >60 >60 mL/min/1.7 3m2 12/21/2023 8:26 AM CDT [facility] POC Blood BLOOD SPECIMEN / Unknown 12/21/2023 8:24 AM CDT 12/21/2023 8:26 AM CDT Michael Onofre MD LAB - [facility] CT LABORATORY [facility] Acute Care Lab [address] (1st floor, no room number) [place] [address], [facility] * US Carotid Bilateral (12/11/2023 8:28 AM [...] exam. DHAVAL ROWE MD Michael Onofre MD [facility] ORDERABL ES * (ABNORMAL) Glucose by meter (12/29/2018 5:50 AM CDT) Pathologist [facility] Glucose 101(H) 70 - 99 mg/dL 12/29/2018 6:02 AM CDT POINT OF CARE TEST, GLUCOSE 12/29/2018 5:50 AM CDT 12/29/2018 6:02 AM CDT Michael Onofre MD [facility] Organization Address City/State/ZIP Co de Phone Number POINT OF CARE TEST, GLUCOSE * Lipid panel (12/28/2018 11:38 AM CDT) Pathologist [facility] Cholesterol 122 <200 mg/dL 12/28/2018 12:04 PM CDT [facility] Triglycerides 68 <150 mg/dL 12/28/2018 12:04 PM CDT [facility] HDL Cholesterol 46 >39 mg/dL 09/06/201 9 12:06 PM CDT [facility] LDL Cholesterol Calculated 62 <100 mg/dL 12/28/2018 12:06 PM CDT [facility] Comment:Desirable: <100 mg/d l Non HDL Cholesterol 76 <130 mg/dL 12/28/2018 12:06 PM CDT [facility] Blood specimen (specimen) 12/28/2018 11:38 AM CDT 12/28/2018 11:39 AM CDT Michael Onofre MD LAB - BLOOD ORD ERABLES [facility] [address] [address], [facility] [phone] from Last 3 Months or Most Recently Relevant to Health Maintenance Care Teams Test Engineering Manager Relationship Specialty Start Date End Date Danilo Thurston MD [facility] [address] [address] PCP - General Family Medicine 10/22/21 Michael Onofre MD [address] [place] [address] Assigned Heart and Vascular Provider 12/24/22
--- OUTSIDE RECORDS SUMMARY | 2023-12-28 13:20 | XMS_ITS | Encounter Summary ---
Author Organization [place] Address [address] [place] [address] Care Team Providers Care Home Visitor Home Base Head Start Name Role Phone Michael Onofre MD Unavailable [phone] Danilo Thurston MD Primary Care Provider [phone] Reason for Referral * Diagnostic Imaging Ultrasound (Routine) - Closed Specialty Diagnoses / Procedures Referred By Marcusac t Referred To Contact Radiology. Diagnoses History of right-sided carotid endarterectomy Carotid occlusion, right Asymptomatic stenosis of left carotid artery Procedures US Carotid Bilateral Michael Onofre MD [address] [place] [address] Referral ID Status Reason Start Date Expiration Date Visits Re quested Visits Authorized Closed 12/15/2022 12/15/2023 1 1 Reason for Visit * Diagnostic Imaging Ultrasound (Routine) - Closed Specialty Diagnoses / Procedures Referred By Contac t Referred To Contact Radiology. Diagnoses History of right-sided carotid endarterectomy Carotid occlusion, right Asymptomatic stenosis of left carotid artery Procedures US Carotid Bilateral Michael Onofre MD [address] [place] [address] Referral ID Status Reason Start Date Expiration Date Visits Re quested Visits Authorized [id number] Closed 12/15/2022 12/15/2023 1 1 Encounter Details Date Type Department Care Team (Latest Contact Info) Description 12/11/2023 7:39 AM CDT - 12/11/2023 11:59 PM CDT Hospital Encounter [facility] [address] [facility] [address] [place] [address] Michael Onofre MD [address] [place] [address] History of right-sided carotid endarterectomy; Carotid occlusion, [...] Sig Dispensed Refills Start Date End Date CALCIUM-VITAMIN D PO Take 1 tablet by mouth 2 times daily clopidogrel (PLAVIX) 75 MG tablet Take 75 mg by mouth every evening hydrochlorothiazide (HYDRODIURIL) 12.5 MG tablet Take 12.5 mg by mouth daily metoprolol succinate ER (TOPROL-XL) 50 MG 24 hr tablet Take 50 mg by mouth daily rosuvastatin (CRESTOR) 10 MG tablet Take 10 mg by mouth daily alendronate (FOSAMAX) 70 MG tablet Take 70 mg by mouth every 7 days On Sundays12/12/2023 loratadine (CLARITIN) 10 MG tablet Take 10 mg by mouth daily 12/28/2023 pantoprazole (PROTONIX) 20 MG EC tabletIndications:Asym ptomatic stenosis of right carotid artery Take 1 tablet (20 mg) by mouth every morning (before breakfast) 90 tablet 3 12/29/2018 12/12/2023 sodium chloride (OCEAN) 0.65 % nasal spray [place] 1 spray into both nostrils daily as needed for congestion 12/28/2023 documented as of this encounter Plan of Treatment Upcoming Encounters Date Type Department Care Team (Late st Contact Info) Description 12/28/2023 3:45 PM CDT Virtual Visit [facility] [place] [address] [place] [phone] Michael Onofre MD [address] [place] [address] documented as of this encounter Procedures Procedure Name Priority Date/Time Associated Diagnosis Comments US CAROTID BILATERAL Routine 12/11/2023 8:28 AM CDT History of right-sided carotid endarterectomy Carotid occlusion, right Asymptomatic stenosis of left carotid artery documented in this encounter Results * US Carotid Bilateral (12/11/2023 8:28 AM [...] exam. DHAVAL ROWE MD Michael Onofre MD [facility] ORDERABL ES documented in this encounter Visit Diagnoses Diagnosis History of right-sided carotid endarterectomy Carotid occlusion, right Occlusion and stenosis of carotid artery without mention of cerebral infarction Asymptomatic stenosis of left carotid artery documented in this encounter Care Teams Home Visitor Home Base Head Start Relationship Specialty Start Date End Date Danilo Thurston MD [facility] [address] [address] PCP - General Family Medicine 10/22/21 Michael Onofre MD [address] [place] [address] Assigned Heart and Vascular Provider 12/24/22 documented as of this encounter
--- NOTE | 2023-12-28 13:45 | CRLHL7_ITS ---
For Patients: As a result of the Century Cures Act, medical imaging exams and procedure reports are released immediately into your electronic medical record. You may view this report before your referring provider. If you have questions, please contact your health care provider. Examination: US abdominal aorta Indication: Other postprocedural states. Abdominal aortic aneurysm screening. Technique: Mota scale and color Doppler images of the aorta and common iliac arteries are obtained. Comparison: None Findings: Proximal aorta: 2.8 x 3.0 cm Mid aorta: 2.3 x 2.8 cm Distal aorta: 1.8 x 1.9 cm Right common iliac artery: 1.4 x 1.8 cm Left common iliac artery: 1.5 x 1.7 cm Impression: No abdominal aortic aneurysm. Dictated by Jose Ramon Bynum MD @ 12/28/2023 2:52:40 PM (Electronically Signed)
--- NOTE | 2023-12-28 14:30 | CRLHL7_ITS ---
For Patients: As a result of the Century Cures Act, medical imaging exams and procedure reports are released immediately into your electronic medical record. You may view this report before your referring provider. If you have questions, please contact your health care provider. DXA BONE MINERAL DENSITY STUDY Reason for exam: Age-related osteoporosis. Current height (in): 70. Weight (lb): 187. Menopause age: N/A. Ethnicity: White. 1. Have you had a previous hip or vertebral fracture? No. 2. Have you had any fractures during your adult life which did not result from significant trauma (e.g., auto accident)? No. 3. Did either of your parents have a hip fracture? No. 4. Do you smoke? No. 5. Have you ever taken Glucocorticoids? No. 6. Do you have rheumatoid arthritis? No. 7. Do you have secondary osteoporosis? No. 8. Do you drink 3 or more alcoholic drinks per day? No. 9. Are you being treated for osteoporosis? No. 10. Have you ever taken any of the following medications: Actonel, Evista, Fosamax, Miacalcin, Reclast, Boniva, Forteo, HRT (i.e. estrogen/hormone therapy), Protelos, Prolia, Vitamin D, Calcium, other ??? please specify. ANSWER: Yes, Fosamax, vitamin D, calcium. 11. Do you have any of the following medical conditions: Anorexia or bulimia, asthma or emphysema, end stage renal disease, hyperparathyroidism, any seizure disorders, cancer, inflammatory bowel diseases, hysterectomy, other ??? please specify. ANSWER: Yes, any seizure disorder, cancer. 12. What was your maximum height (inches)? 70. 13. Do you perform weight bearing exercise regularly? Yes. 14. Do you regularly consume dairy products? Yes. 15. Do you drink caffeinated beverages? Yes. TECHNIQUE: Bone mineral density study was performed using the [employer]. FINDINGS: The results of the study expressed as bone mineral density (BMD) are as follows: Lumbar spine L2 to L4: BMD: 0.986 g/cm2. T-score: -1.2. Z-score: 0.0. Neck Left: BMD: 0.644 g/cm2. T-score: -2.1. Z-score: -0.6. Right: BMD: 0.600 g/cm2. T-score: -2.4. Z-score: -0.9. Total Left: BMD: 0.815 g/cm2. T-score: -1.4. Z-score: -0.4. Right: BMD: 0.787 g/cm2. T-score: -1.6. Z-score: -0.6. IMPRESSION: Osteopenia. COMPARISON: Compared with scan of 11/11/2021, the bone mineral density has decreased by 6.6 percent at the spine and decreased by 1.0 percent at the hip. Compared with scan of 11/21/2019, the bone mineral density has decreased by 1.0 percent at the spine and increased by 3.1 percent at the hip. FRAX 10-year Fracture Risk Major Osteoporotic Fracture: 11 percent Hip Fracture: 4.7 percent Reported Risk Factors: [place] () Neck BMD=0.600, BMI=26.8 Jose Ramon Bynum M.D. Diagnostic Radiologist [email or web address] LANDEN/rohit / bM/Dictated by: Jose Ramon Bynum MD @ 12/28/2023 3:46:00 PM (Electronically Signed)
== END 2023-12-28 13:18 | disposition home or self-care (01) ==
LOC: US 13:18
PROVIDERS: PCP Family Medicine; Visit Provider Family Medicine
DX: Z13.6 Encounter for screening for cardiovascular disorders (principal); Z98.890 Other specified postprocedural states; M81.0 Age-related osteoporosis without current pathological fracture; M85.89 Other specified disorders of bone density and structure, multiple sites
CPT/HCPCS: 76775; 77080

== ENCOUNTER 2024-12-09 08:18 | Outpatient (CLI) | payer MEDICARE, SELFPAY | END 2024-12-09 08:19 | disposition home or self-care (01) | LOC: NFLDREF 12-11 15:44 | PROVIDERS: PCP Family Medicine; Referring Provider Family Medicine; Visit Provider Family Medicine | DX: Z00.00 Encounter for general adult medical examination without abnormal findings (principal); I10 Essential (primary) hypertension; E78.5 Hyperlipidemia, unspecified; Z12.5 Encounter for screening for malignant neoplasm of prostate | CPT/HCPCS: 80053; 80061; G0103 ==